=== PATIENT | female | born 1935 | race Caucasian/White ===

== ENCOUNTER 2017-01-19 14:12 | Inpatient (IN) ==
[2017-01-19] MEDS ORDERED: ACETAMINOPHEN 325 MG TABLET PO PRN ×2 (14:25→15:48)
[2017-01-19] MEDS: DEXTROSE 5% NACL 0.45% 1,000 ML IV SCH (16:30)
[2017-01-19 16:32] LABS: Basophils # 0.1 10*3/uL (0.0-0.2); Basophils % 0.6 % (0.0-0.8); Eosinophils # 0.1 10*3/uL (0.0-0.87); Eosinophils % 0.6 % (0.00-10.9); Hematocrit 37.4 VOL% (35.7-47.0); Immature Granulocytes % 0.2 %; Immature Granulocytes Absolute 0.02 #; Lymphocytes # 1.2 10*3/uL (1.4-4.0); Lymphocytes % 13.3 % (21.3-54.2); Mean Corpuscular HGB Conc 32.1 GM/DL (32-36); Mean Corpuscular Hemoglobin 28 PG (27-34); Mean Corpuscular Volume 86.2 FL (87-102); Mean Platelet Volume 9.9 FL (9.6-12.0); Monocytes # 0.6 10*3/uL (0.11-0.8); Monocytes % 6.3 % (1.7-12.7); Neutrophils # 7.3 10*3/uL (1.4-7.4); Platelet Count 511 T/CUMM (130-400); Red Blood Count 4.34 MC/CUMM (3.8-5.5); Red Cell Distribution Width 18.6 % (9.3-17.3); White Blood Count 9.3 T/CUMM (4-12)
--- NOTE | 2017-01-19 16:37 | XRay Report ---
History is chest pain Comparison 08/01/2016 Mediastinal contours unchanged with a small hiatal hernia present. No congestive failure or confluent infiltrates seen Multiple chronic right upper rib fractures present Extensive chronic deformity of the proximal left humerus noted Impression: No interval change PROCEDURE INTERPRETED AT [facility] DEPARTMENT OF RADIOLOGY Final Report Signed by: Dr. Amisha Camp
[2017-01-19 17:05] LABS: Albumin 3.8 G/DL (3.4-5.0); Bilirubin,Total 0.8 MG/DL (0.2-1.0); Calcium 9.2 MG/DL (8.5-10.1); Magnesium 2.3 MG/DL (1.8-2.4); Total Protein 7.2 G/DL (6.4-8.3)
[2017-01-19 17:06] LABS: Osmolality,Calculated 284.3 MOS/KG (273-304); Potassium 4.2 MMOL/L (3.5-5.1)
--- NOTE | 2017-01-19 17:39 | EKG Report ---
Stationary ECG Study [facility] Test Date: 01/19/2017 5:38:12 PM Pat Name: PANCHITO PETERS Department: Room: 236 Gender: F Office Manager Executive Assistant: KYARA : 1935 Requested by: Paras Dueñas Order Number: [id number] Reading MD: REX MENDOZA Intervals [place] Rate: 94 P: 58 CA: 165 QRS: -49 QRSD: 110 T: 12 QT: 362 QTc: 414 Interpretive Statements SINUS RHYTHM LEFT ANTERIOR FASCICULAR BLOCK VOLTAGE CRITERIA FOR LVH POSSIBLE ANTERIOR MYOCARDIAL INFARCTION, OF INDETERMINATE AGE Electronically Signed On 01-21-17 11:20:50 CDT by REX MENDOZA [email or web address]
[2017-01-19 19:33] LABS: Apearance,Urine Slightly Hazy (Clear); Bilirubin,Urine Negative (Negative); Blood, Urine Negative (Negative); Glucose,Urine (UA) Negative (Negative); Ketones,Urine Negative (Negative); Mucus,Urine Occasional /LPF (Occasional); Nitrite,Urine Negative (Negative); Protein,Urine Negative; RBC,Urine <1 /HPF (0-4); Squamous Epithelial Cell,Urine Occasional /HPF (0-10); Urine Color Yellow (Yellow); Urine Specific Gravity 1.009 (1.001-1.035); Urine Urobilinogen < 2.0 EU/DL (0.2-1.0); WBC,Urine <1 /HPF (0-6)
[2017-01-19] MEDS: ENOXAPARIN 40 MG/0.4 ML SYRINGE SUBCUT SCH (19:39)
[2017-01-19] MEDS: GABAPENTIN 300 MG CAPSULE PO SCH (20:54)
[2017-01-19] MEDS: DONEPEZIL 5 MG TABLET PO SCH (20:55)
[2017-01-19] MEDS: clonazePAM 0.5 MG TABLET PO SCH (20:55)
[2017-01-19] MEDS: DOCUSATE SODIUM 100 MG CAPSULE PO SCH (20:55)
[2017-01-19] MEDS ORDERED: ONDANSETRON 4 MG/2 ML VIAL IV PRN (21:00)
[2017-01-20 04:14] LABS: Risk Ratio 2.17; VLDL CHOLESTEROL 33.6 MG/DL
--- NOTE | 2017-01-20 07:26 | Family Practice History&Phys ---
Assessment and Plan (1) Recurrent falls while walking Status: Acute Assessment and plan: 01/20/2017: Physical therapy, occupational therapy and neurology have been consulted. MRI of the brain, cervical and lumbar spine have been ordered. D Current Visit: Yes (2) Lower extremity weakness Status: Acute Assessment and plan: 01/20/2017: MR studies have been ordered. Current Visit: Yes History of Present Illness Chief complaint: Recurring falls History of present illness: Ms. Ayoub is a 81 year old female Patient's 81-year-old white female presented my office on day of admission with history of recurring falls. Patient states this is due to increasing weakness in her lower extremities and pain in her left lower extremity. Patient's had multiple falls and she is having trouble performing her daily functions at assisted living due to her inability to get up and walk. She has had physical therapy at assisted living but she is making little to no headway. She is to the point that she cannot function in this environment any longer. She denies any new neck or back pain though she has chronic discomfort in both areas. She had no loss of consciousness with any of her falls but does have a mild headache which comes and goes. Patient admits to being quite depressed by her predicament and is confounded by her lack of independence. I told her we needed to admit her get studies of her cervical spine and lumbar spine and brain insurance she has not had any stroke or spinal problem leading to her present problems. I truly think she is going to need long-term care. Home Medications Medication Instructions Recorded Confirmed Type Aspirin [Ecotrin] 81 mg PO DAILY 02/14/15 01/19/17 History Estradiol Tab [Estrace Tab] 1 mg PO DAILY 02/14/15 01/19/17 History Levothyroxine Tab [Synthroid Tab] 25 mcg PO DAILY 02/14/15 01/19/17 History Pantoprazole Tab [Protonix Tab] 40 mg PO BID 02/14/15 01/19/17 History Polyethylene Glycol Powder 17 gm PO DAILY 02/14/15 01/19/17 History [Miralax] clonazePAM [Clonazepam] 0.5 mg PO BID 02/14/15 01/19/17 History HYDROcodone/ACETAMIN 10-325 [[place] 1 tablet PO TID 02/01/16 01/19/17 History 10-325] Multivitamin (Ocuvite) [Ocuvite] 1 tablet PO DAILY 02/01/16 01/19/17 History Acetaminophen Tab [Tylenol Tab] 650 mg PO Q6H PRN #0 tablet 08/02/16 01/19/17 Rx Losartan/Hctz 50-12.5 [Hyzaar 1 tablet PO DAILY 11/08/16 01/19/17 History 50-12.5] Gabapentin 300 mg PO BID 01/19/17 01/19/17 History Allergies Allergy/AdvReac Type Severity Reaction Status Date / Time codeine AdvReac Nausea Verified 02/13/15 13:25 Corticosteroids AdvReac Depression Verified 02/01/16 14:50 (Glucocorticoids) morphine AdvReac Nausea Verified 02/13/15 13:25 - Constitutional Constitutional: Present: fatigue, weakness. Absent: chills, fever(s) - EENT Eyes: Absent: blurry vision, loss of vision Ears: Absent: decreased hearing, ear pain Nose, mouth and throat: Absent: hoarseness, nasal congestion, sinus pressure, sore throat - Cardiovascular Cardiovascular: Absent: chest pain at rest, chest pain with activity, dyspnea, orthopnea, palpitations, PND - Respiratory Respiratory: Absent: cough, dyspnea, wheezing - Gastrointestinal Gastrointestinal: Absent: abdominal pain, diarrhea, dyspepsia, dysphagia, melena , nausea, vomiting - Genitourinary Genitourinary: Absent: difficulty urinating, urinary frequency, urinary hesitancy - Musculoskeletal Musculoskeletal: Present: arthralgias (Left knee), back pain - Neurological Neurological: Present: disequilibrium, dizziness, radicular pain. Absent: confusion, convulsions, focal weakness, numbness, paresthesias - Psychiatric Psychiatric: Present: anxiety, depression. Absent: confusion - Endocrine Endocrine: Present: fatigue. Absent: polydipsia, polyphagia - Hematologic/Lymphatic Hematologic/Lymphatic: Absent: easy bleeding, easy bruising Medical,Surgical,& Family Hx - Medical History Cardio: History of: Hypertension No history of: Aneurysm, Cardiac Dysrhythmia, Cerebrovascular Disease, Congenital Heart Disease, CHF, CAD, [place], Pacemaker, PVD, Valvular Heart Disease, Cardiovascular Problems Psychological: History of: Anxiety Disorders, Depression, Psychiatric/Substance Abuse Tx (vision therapist for depression and anxiety.) No history of: ADHD, Behavior Problems, Bipolar Disorder, Previous Suicide Attempt, Schizophrenia, Violent Behavior, Psychiatric Problems Neurology: History of: Dementia, Migraine, Vertigo No history of: Brain Aneurysm, Cerebral Hemorrhage, Cerebrovascular Accident , Cerebral Palsy, Multiple Sclerosis, Parkinson's Disease, Peripheral Neuropathy , Seizures, TIA, Neurologocal Cancer HEENT: History of: Eye Problem (macular degeneration), Dental Problems No history of: Ear Problem, Glaucoma, Oral Cancer, HEENT Problems Endocrine: History of: Thyroid Disorder (hypothyroidism), Endocrine Problems No history of: Adrenal Disease, Diabetes Mellitus (IDDM), Diabetes Mellitus ( NIDDM), Dyslipidemia, Endocrine Cancer Rheumatology: No history of;: Fibromyalgia, Gout, Myasthenia Gravis, Psoriasis, Rheumatoid Arthritis, Sjogrens, Systemic Lupus Erythematosus, Rheumatological Problems Respiratory: History of: Bronchitis, Pneumonia No history of: Asthma, COPD, Intubation, Obstructive Sleep Apnea, Pulmonary Embolism, Pulmonary Hypertension, Lung Cancer, Respiratory Problems Renal: No history of: Renal (Kidney) Cancer, Dialysis, Renal Failure, Renal Problems Genitourinary: History of: Bladder Problem, Recurring Urinary Tract Infections, Problems (vaginal mesh) No history of: Kidney Stones, Genitourinary Cancer Gastrointestinal: History of: Hemorrhoids, GI Problems (IBS, hiatel hernia) No history of: Bowel Obstruction, Clostridium Difficile, Crohn's Disease, Diverticulitis/ Diverticulosis, Esophageal Varices, Gastrointestinal Bleed, Hematochezia, Hepatitis, Liver Problems, Pancreatitis, Polyps, Ulcerative Colitis, Gastrointestinal Cancer Musculoskeletal: History of: Back/Neck Problems, Degenerative Disk Disease, Herniated Disk, Osteoporosis No history of: Amputation, Musculoskeletal Cancer, Musculoskeletal Problems Hematology: History of: Blood Transfusion Reaction No history of: Anemia, Bleeding Problems, Clotting Problems, Sickle Cell Disease, Hematologic Cancer, Blood Disorders Reproductive: History of: Abnormal Pap Smear, Breast Cancer (mastectomy x 2 total on left and right .. ca i left with reconstrution), Ovarian Cysts, Complication (miscarriage (1) and breech (1)) No history of: Endometriosis, Ectopic , Sexually Transmitted Disorders, Reproductive Cancer, Reproductive Problems Other: History of: Cancer No history of: Anesthesia Reactions, Anaphylaxis, Eczema, HIV, Malignant Hyperthermia, MRSA, Vancomycin-Resistant Enterococci, Skin Problems, Miscellaneous Medical Problems - Surgical History Cardiac Surgeries: Patient Denies: Femoral-Popliteal Bypass Graft, Cardiac Catheterization, Cardiac Surgery, Carotid Endarterectomy, Internal Defibrillator, Vascular Access Devices Thoracic Surgeries: Patient denies;: Kidney (Renal Surgery), Lithotripsy, Nephrectomy, Organ Transplant, Lobectomy Neurologic Surgeries: Patient denies: Brain Aneurysm, Cerebral Hemorrhage, Neurologic Surgery HEENT Surgeries: Surgical HX of: Eye Surgery (bilateral cataracts.), Tonsilectomy & Adenoidectomy Patient denies: Carotid Endarterectomy, Thyroid Surgery Abdominal Surgeries: Surgical HX of: Abdominal Surgery, Appendectomy, Cholecystectomy, Colonoscopy, EGD Patient denies: Gastric Bypass Surgery, Hernia Repair, Splenectomy Reproductive Surgeries: Surgical HX of;: Breast Surgery, Section, Cystoscopy, Genitourinary Surgery, Gynecologic Surgery, Hysterectomy Patient denies;: Dilation and Curettage, Tubal Ligation Orthopedic Surgeries: Surgical HX of;: Implanted Devices (bilateral breast implants), Total Hip Replacement (left hip) Patient denies;: Orthopedic Surgery, Spinal Surgery, Total Knee Replacement - Family History Family History: Reports;: Family Heart Disease, Family Hypertension Denies;: Family Anesthesia Reaction, Family Cancer, Family Diabetes, Family Psychiatric Problems, Family Stroke - Social History Smoking Status: Never smoker Frequency of Alcohol Use: None Type of Drug Use: None Exam - Constitutional Vitals: Period Temp Pulse Resp BP Sys/Schneider Pulse Ox Last 24 Hr 97.2 F-98.3 F 78-93 16-20 151-162/78-84 92-97 Exam: General: Objective patient is a well-developed white female in no acute distress. Patient is articulate and able to give good history. She has no evidence of cognitive impairment. She certainly has a depressed countenance HEENT: Pupils equal and reactive to light. Patent nares and airway Neck: No meningismus, adenopathy, thyromegaly. There are no auscultated carotid bruits. Cardiovascular: Regular rhythm. No murmurs or gallops Chest: Clear to auscultation without rales rhonchi wheezes. Abdomen: Soft nontender to palpation No masses, rebound, guarding or tenderness. Neuro: Cranial nerves intact and DTRs and strength symmetric in all extremities. Dermatologic: No evidence of abnormal lesions or masses. Musculoskeletal: There is no joint swelling the patient does have left knee tenderness. She does have pain with full extension of the left knee. Extremities: There is no calf swelling or tenderness. Psychiatric: Patient is clearly depressed with flattened affect. She is worried about the path she is presently following and quite dissatisfied with her frailties. There is no difficulty with her rationale and she is fully aware of the circumstances. Results - Labs CBC & BMP: 01/19/17 15:59 01/19/17 15:59 Lab Results: I have reviewed the past 24 hour labs - EKG EKG results: sinus rhythm (Heart rate 94 bpm), normal axis, normal QRS, normal ST/T - Diagnostic Findings Procedure: Chest x-ray: report reviewed by me (Normal)
--- NOTE | 2017-01-20 09:15 | Neurology Consult Note ---
History of Present Illness History of present illness: Patient's 81-year-old right-hand white lady admitted to the hospital with recurrent falls. Patient states this is due to increasing weakness in her lower extremities and pain in her left lower extremity primarily in the left knee. Patient's had multiple falls and she is having trouble performing her daily functions at assisted living due to her inability to get up and walk. She has had physical therapy at assisted living but she is making little to no improvement. She is to the point that she cannot function in this environment any longer. She denies any new neck or back pain though she has chronic discomfort in both areas. She had no loss of consciousness with any of her falls but does have a mild headache which comes and goes. Patient admits to being quite depressed. She denies any speech difficulties, swallowing problems , vision difficulties. Her primary problem is that she cannot walk because of left knee pain. Home Medications Medication Instructions Recorded Confirmed Type Aspirin [Ecotrin] 81 mg PO DAILY 02/14/15 01/19/17 History Estradiol Tab [Estrace Tab] 1 mg PO DAILY 02/14/15 01/19/17 History Levothyroxine Tab [Synthroid Tab] 25 mcg PO DAILY 02/14/15 01/19/17 History Pantoprazole Tab [Protonix Tab] 40 mg PO BID 02/14/15 01/19/17 History Polyethylene Glycol Powder 17 gm PO DAILY 02/14/15 01/19/17 History [Miralax] clonazePAM [Clonazepam] 0.5 mg PO BID 02/14/15 01/19/17 History HYDROcodone/ACETAMIN 10-325 [[place] 1 tablet PO TID 02/01/16 01/19/17 History 10-325] Multivitamin (Ocuvite) [Ocuvite] 1 tablet PO DAILY 02/01/16 01/19/17 History Acetaminophen Tab [Tylenol Tab] 650 mg PO Q6H PRN #0 tablet 08/02/16 01/19/17 Rx Losartan/Hctz 50-12.5 [Hyzaar 1 tablet PO DAILY 11/08/16 01/19/17 History 50-12.5] Gabapentin 300 mg PO BID 01/19/17 01/19/17 History Allergies Allergy/AdvReac Type Severity Reaction Status Date / Time codeine AdvReac Nausea Verified 02/13/15 13:25 Corticosteroids AdvReac Depression Verified 02/01/16 14:50 (Glucocorticoids) morphine AdvReac Nausea Verified 02/13/15 13:25 12 point system: reviewed and no additional remarkable complaints except as stated Medical,Surgical,& Family Hx - Medical History Cardio: History of: Hypertension No history of: Aneurysm, Cardiac Dysrhythmia, Cerebrovascular Disease, Congenital Heart Disease, CHF, CAD, [place], Pacemaker, PVD, Valvular Heart Disease, Cardiovascular Problems Psychological: History of: Anxiety Disorders, Depression, Psychiatric/Substance Abuse Tx (fur cutter for depression and anxiety.) No history of: ADHD, Behavior Problems, Bipolar Disorder, Previous Suicide Attempt, Schizophrenia, Violent Behavior, Psychiatric Problems Neurology: History of: Dementia, Migraine, Vertigo No history of: Brain Aneurysm, Cerebral Hemorrhage, Cerebrovascular Accident , Cerebral Palsy, Multiple Sclerosis, Parkinson's Disease, Peripheral Neuropathy , Seizures, TIA, Neurologocal Cancer HEENT: History of: Eye Problem (macular degeneration), Dental Problems No history of: Ear Problem, Glaucoma, Oral Cancer, HEENT Problems Endocrine: History of: Thyroid Disorder (hypothyroidism), Endocrine Problems No history of: Adrenal Disease, Diabetes Mellitus (IDDM), Diabetes Mellitus ( NIDDM), Dyslipidemia, Endocrine Cancer Rheumatology: No history of;: Fibromyalgia, Gout, Myasthenia Gravis, Psoriasis, Rheumatoid Arthritis, Sjogrens, Systemic Lupus Erythematosus, Rheumatological Problems Respiratory: History of: Bronchitis, Pneumonia No history of: Asthma, COPD, Intubation, Obstructive Sleep Apnea, Pulmonary Embolism, Pulmonary Hypertension, Lung Cancer, Respiratory Problems Renal: No history of: Renal (Kidney) Cancer, Dialysis, Renal Failure, Renal Problems Genitourinary: History of: Bladder Problem, Recurring Urinary Tract Infections, Problems (vaginal mesh) No history of: Kidney Stones, Genitourinary Cancer Gastrointestinal: History of: Hemorrhoids, GI Problems (IBS, hiatel hernia) No history of: Bowel Obstruction, Clostridium Difficile, Crohn's Disease, Diverticulitis/ Diverticulosis, Esophageal Varices, Gastrointestinal Bleed, Hematochezia, Hepatitis, Liver Problems, Pancreatitis, Polyps, Ulcerative Colitis, Gastrointestinal Cancer Musculoskeletal: History of: Back/Neck Problems, Degenerative Disk Disease, Herniated Disk, Osteoporosis No history of: Amputation, Musculoskeletal Cancer, Musculoskeletal Problems Hematology: History of: Blood Transfusion Reaction No history of: Anemia, Bleeding Problems, Clotting Problems, Sickle Cell Disease, Hematologic Cancer, Blood Disorders Reproductive: History of: Abnormal Pap Smear, Breast Cancer (mastectomy x 2 total on left and right .. ca i left with reconstrution), Ovarian Cysts, Complication (miscarriage (1) and breech (1)) No history of: Endometriosis, Ectopic , Sexually Transmitted Disorders, Reproductive Cancer, Reproductive Problems Other: History of: Cancer No history of: Anesthesia Reactions, Anaphylaxis, Eczema, HIV, Malignant Hyperthermia, MRSA, Vancomycin-Resistant Enterococci, Skin Problems, Miscellaneous Medical Problems - Surgical History Cardiac Surgeries: Patient Denies: Femoral-Popliteal Bypass Graft, Cardiac Catheterization, Cardiac Surgery, Carotid Endarterectomy, Internal Defibrillator, Vascular Access Devices Thoracic Surgeries: Patient denies;: Kidney (Renal Surgery), Lithotripsy, Nephrectomy, Organ Transplant, Lobectomy Neurologic Surgeries: Patient denies: Brain Aneurysm, Cerebral Hemorrhage, Neurologic Surgery HEENT Surgeries: Surgical HX of: Eye Surgery (bilateral cataracts.), Tonsilectomy & Adenoidectomy Patient denies: Carotid Endarterectomy, Thyroid Surgery Abdominal Surgeries: Surgical HX of: Abdominal Surgery, Appendectomy, Cholecystectomy, Colonoscopy, EGD Patient denies: Gastric Bypass Surgery, Hernia Repair, Splenectomy Reproductive Surgeries: Surgical HX of;: Breast Surgery, Section, Cystoscopy, Genitourinary Surgery, Gynecologic Surgery, Hysterectomy Patient denies;: Dilation and Curettage, Tubal Ligation Orthopedic Surgeries: Surgical HX of;: Implanted Devices (bilateral breast implants), Total Hip Replacement (left hip) Patient denies;: Orthopedic Surgery, Spinal Surgery, Total Knee Replacement - Family History Family History: Reports;: Family Heart Disease, Family Hypertension Denies;: Family Anesthesia Reaction, Family Cancer, Family Diabetes, Family Psychiatric Problems, Family Stroke - Social History Smoking Status: Never smoker Frequency of Alcohol Use: None Type of Drug Use: None Exam - Constitutional Vitals: Period Temp Pulse Resp BP Sys/Schneider Pulse Ox Last 24 Hr 97.2 F-98.3 F 78-93 16-20 151-162/78-84 92-97 Exam: GENERAL: Patient is in no acute distress. NECK: Neck is supple. There is no JVD. No carotid bruits present. No thyroid masses. CVS: First and second heart sounds are normal. There is no S3 present. Regular rate and rhythm. RESPIRATORY: Lungs are clear to auscultation without any rales or rhonchi. ABDOMEN: Soft and non-tender. Bowel sounds are present. There is no hepatosplenomegaly. EXT: There is no palpable edema. Peripheral pulses are present. Skin: No rashes Central Nervous system: General: Alert, awake and Oriented x 3 Speech: Fluent Comprehension: Intact and normal Facial expressions: Normal Cranial Nerves: CN1/Olfactory: Normal CN II/ Optic: Normal, Visual Paiz unreliable CN III, and : PARVEZ & EOMI CN V: Normal & intact CN VII: face is symmetric CNVIII: Normal CN XI/X/XI/XII: Intact and Normal Motor: Bulk and Tone is normal. Strength in the right 5/5 Strength in the left 2-3/5 and this is because of significant tenderness in the left knee Sensory: Grossly intact for all the modalities of PP, LT and temp sense Reflexes: 1+ and symmetrical Cerebellar function: Normal finger to nose testing. Toes: Equivocal Gait: Not tested Results - Labs CBC & BMP: 01/19/17 15:59 01/19/17 15:59 Assessment and Plan (1) Gait disorder Status: Acute Assessment and plan: Gait disorder and frequent falls is likely due to the severe osteoarthritis of the left knee. I do not see a clear evidence of a stroke. MRI has been ordered. Will review it. Agree with long-term care Consider orthopedic surgery consultation for the left knee. Continue aspirin a day Consult PT and OT Current Visit: No
[2017-01-20] MEDS: hydroCHLOROthiazide 12.5 MG CAPSULE PO SCH (11:07)
[2017-01-20] MEDS: MULTIVITAMIN (OCUVITE) TABLET PO SCH (11:08)
[2017-01-20] MEDS: ESTRADIOL 1 MG TABLET PO SCH (11:08)
[2017-01-20] MEDS: ASPIRIN EC 81 MG TABLET PO SCH (11:08)
[2017-01-20] MEDS: GABAPENTIN 300 MG CAPSULE PO SCH ×2 (11:09→21:28)
[2017-01-20] MEDS: clonazePAM 0.5 MG TABLET PO SCH ×2 (11:10→21:28)
[2017-01-20] MEDS: PANTOPRAZOLE 40 MG TABLET PO SCH (11:10)
[2017-01-20] MEDS: DULoxetine 30 MG CAPSULE PO SCH (11:11)
[2017-01-20] MEDS: DOCUSATE SODIUM 100 MG CAPSULE PO SCH ×2 (11:11→21:27)
[2017-01-20] MEDS: LEVOTHYROXINE 25 MCG TABLET PO SCH (11:16)
[2017-01-20] MEDS: POLYETHYLENE GLYCOL POWDER 17 GM PACK PO SCH (11:16)
--- NOTE | 2017-01-20 12:14 | Magnetic Resonance Report ---
MR head/brain wo con Indication: Lower extremity weakness Comparison: MRI brain dated August 02, 2016 Technique: Multiplanar magnetic resonance imaging was performed of the brain without the use of intravenous contrast. Findings: Redemonstration of moderate to marked periventricular and subcortical T2 hyperintensity which is nonspecific but appears mildly progressed from prior examination. Considerations include chronic microvascular ischemic change, vasculitis, and demyelinating process. Global volume loss again present. Mild to moderate prominence of the bilateral lateral and third ventricles appears unchanged and is likely on an ex vacuo dilatation basis. However, clinical correlation to exclude normal pressure hydrocephalus is recommended. The midline structures are nondisplaced. The hopkins-white matter differentiation is maintained. Hyperintensity noted within the ventral gonzalo on diffusion-weighted sequence is most likely artifactual. There is no definitive evidence of acute intracranial hemorrhage or ischemia. The included orbits and their contents appear within normal limits. T2 major vascular flow voids are maintained. IMPRESSION: No acute intracranial abnormality demonstrated. Redemonstration of moderate to marked periventricular and subcortical T2 hyperintensity which is nonspecific but appears mildly progressed from prior examination. Considerations include chronic microvascular ischemic change, vasculitis, and demyelinating process. Global volume loss again present. Mild to moderate prominence of the bilateral lateral and third ventricles appears unchanged and is likely on an ex vacuo dilatation basis. However, clinical correlation to exclude normal pressure hydrocephalus is recommended. PROCEDURE INTERPRETED AT [facility] DEPARTMENT OF RADIOLOGY Final Report Signed by: Dr Ramiro Justice
--- NOTE | 2017-01-20 13:02 | Magnetic Resonance Report ---
MR cervical spine wo con Indication: Lower extremity weakness Comparison: MRI cervical spine dated January 20, 2017 Technique: Multiplanar MRI imaging of the cervical spine was obtained without the use of intravenous contrast. Findings: Vertebral body heights are maintained. 2 mm retrolisthesis of C3 upon C4, C4 upon C5, and C5 upon C6. Straightening of normal cervical lordosis which may be positional or secondary to muscle spasm. Disc levels: C2/C3: No significant disc bulge, neuroforaminal narrowing or central spinal canal stenosis. C3/C4: Mild loss of disc space height. Posterior disc osteophyte complex noted at this level with moderate spinal canal narrowing. There is mild bilateral neuroforaminal narrowing as a result of posterior facet and uncovertebral joint hypertrophy. C4/C5: Severe loss of disc space height. Posterior disc osteophyte complex noted at this level with moderate to severe spinal canal narrowing and mild cord flattening. There is moderate to severe bilateral neuroforaminal narrowing, greater on the right, as a result of uncovertebral joint and posterior facet hypertrophy. C5/C6: Severe loss of disc space height. Posterior disc osteophyte complex noted at this level with moderate spinal canal narrowing and mild cord flattening. There is severe bilateral neuroforaminal narrowing noted at this level as a result of posterior facet and uncovertebral joint hypertrophy, greater on the left. C6/C7: Moderate to severe loss of disc space height. Mild posterior disc osteophyte complex with mild to moderate spinal canal narrowing. Moderate to severe bilateral neuroforaminal narrowing as a result of uncovertebral joint and posterior facet hypertrophy. C7/T1: Moderate to severe loss of disc space height. Spinal canal patent. Bilateral neural foramina are patent. IMPRESSION: Multilevel degenerative change and malalignment of the cervical spine with significant spinal canal and neuroforaminal narrowing, as detailed above. Findings appear similar to study dated February 02, 2016. PROCEDURE INTERPRETED AT [facility] DEPARTMENT OF RADIOLOGY Final Report Signed by: Dr Ramiro Justice
--- NOTE | 2017-01-20 13:10 | Magnetic Resonance Report ---
MR lumbar spine wo con Indication: Lower extremity weakness Comparison: MRI lumbar spine dated November 08, 2016 Technique: Multiplanar MRI imaging of the lumbar spine was performed without the use of intravenous contrast. Findings: 2 mm retrolisthesis of L2 upon L3. Vertebral body heights are maintained. Intervertebral disc space levels: L1-L2: Mild diffuse disc bulge as well as posterior facet and ligamentum flavum hypertrophy with minimal spinal canal narrowing. There is no significant neuroforaminal narrowing. L2-L3: Moderate to severe loss of disc space height. Mild diffuse disc bulge with posterior facet and ligamentum flavum hypertrophy results in moderate spinal canal narrowing. There is moderate bilateral neuroforaminal narrowing, greater on the right. L3-L4: Mild loss of disc space height. Mild diffuse disc bulge with posterior facet and ligamentum flavum hypertrophy result in mild spinal canal narrowing. There is moderate bilateral neuroforaminal narrowing. L4-L5: Mild loss of disc space height with posterior facet and ligamentum flavum hypertrophy results in moderate spinal canal narrowing. There is moderate bilateral neuroforaminal narrowing. L5-S1: Disc desiccation with mild diffuse disc bulge as well as posterior facet hypertrophy results in mild spinal canal narrowing. There is moderate to severe bilateral neuroforaminal narrowing. 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 PROCEDURE INTERPRETED AT [facility] DEPARTMENT OF RADIOLOGY Final Report Signed by: Dr Ramiro Justice
[2017-01-20] MEDS: Mirabegron [Myrbetriq] 25 MG PO SCH (17:02)
[2017-01-20] MEDS: DONEPEZIL 5 MG TABLET PO SCH (21:28)
[2017-01-20] MEDS: ENOXAPARIN 40 MG/0.4 ML SYRINGE SUBCUT SCH (21:28)
[2017-01-21] MEDS: DEXTROSE 5% NACL 0.45% 1,000 ML IV SCH ×2 (08:25→17:09)
[2017-01-21] MEDS: clonazePAM 0.5 MG TABLET PO SCH ×2 (08:26→22:34)
[2017-01-21] MEDS: ASPIRIN EC 81 MG TABLET PO SCH (08:26)
[2017-01-21] MEDS: PANTOPRAZOLE 40 MG TABLET PO SCH (08:27)
[2017-01-21] MEDS: hydroCHLOROthiazide 12.5 MG CAPSULE PO SCH (08:27)
[2017-01-21] MEDS: ESTRADIOL 1 MG TABLET PO SCH (08:27)
[2017-01-21] MEDS: DULoxetine 30 MG CAPSULE PO SCH (08:27)
[2017-01-21] MEDS: MULTIVITAMIN (OCUVITE) TABLET PO SCH (08:27)
[2017-01-21] MEDS: GABAPENTIN 300 MG CAPSULE PO SCH ×2 (08:28→22:34)
[2017-01-21] MEDS: POLYETHYLENE GLYCOL POWDER 17 GM PACK PO SCH (08:28)
[2017-01-21] MEDS: DOCUSATE SODIUM 100 MG CAPSULE PO SCH ×2 (08:28→22:34)
[2017-01-21] MEDS: LEVOTHYROXINE 25 MCG TABLET PO SCH (08:28)
[2017-01-21] MEDS: Mirabegron [Myrbetriq] 25 MG PO SCH (08:32)
--- NOTE | 2017-01-21 11:22 | Internal Med Progress Note ---
Assessment and Plan (1) Lower extremity weakness Status: Acute Assessment and plan: 81-year-old female admitted to acute care * Lower extremity weakness. Workup in progress * Multiple falls. Probably secondary to severe osteoarthritis of her knee. * Hypertension. Blood pressure is stable. * Continues to current treatment. Current Visit: Yes (2) Recurrent falls while walking Status: Acute Current Visit: Yes (3) depression Status: Chronic Current Visit: No (4) generalized anxiety Status: Chronic Current Visit: No (5) hypertension Status: Chronic Current Visit: No Internal Medicine - PN: Subj Interval history: 81-year-old female with history of hypothyroidism, hypertension, neuropathy who was admitted with multiple falls. She denies any chest pain or shortness of breath. She denies any nausea vomiting or diarrhea. She is complaining of pain in her shoulder and knee Exam (Progress Note) - Constitutional Vitals: Period Temp Pulse Resp BP Sys/Schneider Pulse Ox Last 24 Hr 97.1 F-97.8 F 77-98 20-20 158-165/80-94 92-98 Exam: Examination: GENERAL: NAD. HEENT: PERRLA. EOMI. NECK: Neck is supple. CVS: Regular rate and rhythm. S1 and S2 are normal. RESPIRATORY: Lungs are clear. No rales or rhonchi. ABDOMEN: Soft and nontender. EXT: No edema. PERSONAL CLOTHING LAUNDRY AIDE: Patient is awake, alert and oriented to time place and person. SKIN: Warm and dry. MSK: No obvious deformity. Results - Labs CBC & BMP: 01/19/17 15:59 01/19/17 15:59
[2017-01-21] MEDS: DONEPEZIL 5 MG TABLET PO SCH (22:34)
[2017-01-21] MEDS: ENOXAPARIN 40 MG/0.4 ML SYRINGE SUBCUT SCH (22:35)
[2017-01-22] MEDS: DEXTROSE 5% NACL 0.45% 1,000 ML IV SCH (04:30)
[2017-01-22] MEDS: DULoxetine 30 MG CAPSULE PO SCH (09:29)
[2017-01-22] MEDS: POLYETHYLENE GLYCOL POWDER 17 GM PACK PO SCH (09:29)
[2017-01-22] MEDS: MULTIVITAMIN (OCUVITE) TABLET PO SCH (09:29)
[2017-01-22] MEDS: hydroCHLOROthiazide 12.5 MG CAPSULE PO SCH (09:29)
[2017-01-22] MEDS: ASPIRIN EC 81 MG TABLET PO SCH (09:30)
[2017-01-22] MEDS: ESTRADIOL 1 MG TABLET PO SCH (09:30)
[2017-01-22] MEDS: clonazePAM 0.5 MG TABLET PO SCH ×2 (09:30→22:09)
[2017-01-22] MEDS: DOCUSATE SODIUM 100 MG CAPSULE PO SCH ×2 (09:30→22:09)
[2017-01-22] MEDS: PANTOPRAZOLE 40 MG TABLET PO SCH (09:30)
[2017-01-22] MEDS: LEVOTHYROXINE 25 MCG TABLET PO SCH (09:30)
[2017-01-22] MEDS: GABAPENTIN 300 MG CAPSULE PO SCH ×2 (09:30→22:09)
[2017-01-22] MEDS: Mirabegron [Myrbetriq] 25 MG PO SCH (09:30)
--- NOTE | 2017-01-22 10:18 | Internal Med Progress Note ---
Assessment and Plan (1) Lower extremity weakness Status: Acute Assessment and plan: 81-year-old female admitted to acute care * Lower extremity weakness. Patient has had MRI of brain and cervical spine and lumbar spine. Results noted. Doubt if she has NPH but it is a possibility * Multiple falls. Probably secondary to severe osteoarthritis of her knee. * Hypertension. Blood pressure is stable. * Continues to current treatment. Current Visit: Yes (2) Recurrent falls while walking Status: Acute Current Visit: Yes (3) depression Status: Chronic Current Visit: No (4) generalized anxiety Status: Chronic Current Visit: No (5) hypertension Status: Chronic Current Visit: No Internal Medicine - PN: Subj Interval history: 81-year-old female with history of hypothyroidism, hypertension, neuropathy who was admitted with multiple falls. She is feeling about the same. No chest pain or shortness of breath. Exam (Progress Note) - Constitutional Vitals: Period Temp Pulse Resp BP Sys/Schneider Pulse Ox Last 24 Hr 97.4 F-97.8 F 77-97 14-22 114-174/77-91 93-97 Exam: Examination: GENERAL: NAD. NECK: Neck is supple. CVS: Regular rate and rhythm. RESPIRATORY: Lungs are clear. ABDOMEN: Soft and nontender. EXT: No edema. BILINGUAL MEDICAL ASSISTANT: Patient is awake, alert and oriented to time place and person. SKIN: Warm and dry. MSK: No obvious deformity. Results - Labs CBC & BMP: 01/19/17 15:59 01/19/17 15:59
[2017-01-22] MEDS: DONEPEZIL 5 MG TABLET PO SCH (22:09)
[2017-01-22] MEDS: ENOXAPARIN 40 MG/0.4 ML SYRINGE SUBCUT SCH (22:10)
--- NOTE | 2017-01-23 07:27 | Family Practice Progress Note ---
Family Practice - PN: Subj Interval history: Patient states she is having urinary frequency and still very weak. I talked her about swing bed placement more intensive physical therapy and she was agreeable to trying this and requested [facility]. She has a E. coli UTI seen on her urine culture. I have started her on Rocephin today. She does not have any fever or chills. I have consulted physical therapy to start ambulation. Exam (Progress Note) - Constitutional Vitals: Period Temp Pulse Resp BP Sys/Schneider Pulse Ox Last 24 Hr 97.4 F-98.1 F 83-107 16-20 136-164/72-103 93-96 Exam: Objectively well-developed white female no acute distress. She is able to give good history. She still appears depressed. She did not bring her knee brace with her from home. I told her it would be a good idea for her to obtain one. I will ask orthopedist to see her. Cardiovascular: Heart rates regular without murmurs or gallops. Respiratory: Lungs clear to auscultation bilaterally. Abdomen: Abdomen soft and nontender to palpation. Results - Labs CBC & BMP: 01/19/17 15:59 01/19/17 15:59 Lab Results: I have reviewed the past 24 hour labs Assessment and Plan (1) Recurrent falls while walking Status: Acute Assessment and plan: 01/20/2017: Physical therapy, occupational therapy and neurology have been consulted. MRI of the brain, cervical and lumbar spine have been ordered. D 01/23/2017: Physical therapy has been consulted. I am going to ask her throat is here to concerning her persistent left knee pain. X-rays left knee will be ordered. Current Visit: Yes (2) Lower extremity weakness Status: Acute Assessment and plan: 01/20/2017: MR studies have been ordered. 01/23/2017: MR studies provided no insight into the cause of her weakness. Some of this may be related to her fear of falling. Current Visit: Yes (3) UTI (urinary tract infection) Status: Acute Assessment and plan: 01/23/2017: IV Rocephin has been ordered. Current Visit: Yes
[2017-01-23] MEDS: DEXTROSE 5% NACL 0.45% 1,000 ML IV SCH ×2 (07:41→21:51)
[2017-01-23] MEDS: cefTRIAXone 1,000 MG in SODIUM CHLORIDE 0.9% 100 ML IV SCH (08:19)
[2017-01-23] MEDS: POLYETHYLENE GLYCOL POWDER 17 GM PACK PO SCH (08:20)
[2017-01-23] MEDS: DULoxetine 30 MG CAPSULE PO SCH (08:21)
[2017-01-23] MEDS: ASPIRIN EC 81 MG TABLET PO SCH (08:21)
[2017-01-23] MEDS: MULTIVITAMIN (OCUVITE) TABLET PO SCH (08:21)
[2017-01-23] MEDS: hydroCHLOROthiazide 12.5 MG CAPSULE PO SCH (08:21)
[2017-01-23] MEDS: LEVOTHYROXINE 25 MCG TABLET PO SCH (08:21)
[2017-01-23] MEDS: GABAPENTIN 300 MG CAPSULE PO SCH ×2 (08:21→22:36)
--- NOTE | 2017-01-23 08:21 | XRay Report ---
Referring Physician: Paras Naylor Exam: XR knee 3V LT Date: January 23, 2017 at 7:37 AM Reason: Persistent left knee pain Comparison: Left femur x-rays August 20, 2013 Findings: There is mild tricompartmental marginal spurring. There is also moderate joint space narrowing at the medial compartment and mild joint space narrowing at the lateral compartment. No acute fracture, dislocation or osseous destructive process is identified. However, a suprapatellar joint effusion is suspected. Impression: Mild to moderate degenerative change at the left knee. No acute osseous process is identified. PROCEDURE INTERPRETED AT [facility] DEPARTMENT OF RADIOLOGY Final Report Signed by: Dr. Tere Goodson
[2017-01-23] MEDS: ESTRADIOL 1 MG TABLET PO SCH (08:22)
[2017-01-23] MEDS: PANTOPRAZOLE 40 MG TABLET PO SCH (08:22)
[2017-01-23] MEDS: clonazePAM 0.5 MG TABLET PO SCH ×2 (08:22→22:37)
[2017-01-23] MEDS: DOCUSATE SODIUM 100 MG CAPSULE PO SCH ×2 (08:22→22:37)
[2017-01-23] MEDS: Mirabegron [Myrbetriq] 25 MG PO SCH (08:28)
--- NOTE | 2017-01-23 10:53 | Case Mgmt Physician Query Form ---
TB Signs and Symptoms Screening ([place]) INSTRUCTIONS: To be completed annually on residents/staff with a significant Tuberculin Skin Test (TST) upon admission/hire or a prior significant TST. To be completed on all staff at hire. Please respond to each listed symptom with an (X) in either the "YES" or "NO" box. Do you currently have any of the following symptoms: YES NO ( ) (x ) A cough If yes, is it: ( ) Productive ( ) Non- productive ( ) (x ) Hemoptysis (spitting up blood) ( ) (x ) Chest pains ( ) (x ) Weight Loss ( ) (x ) Fever ( ) (x ) Night Sweats (x ) ( ) Weakness (x ) ( ) Loss of Appetite ( ) (x ) Difficulty Breathing If you answered YES" to any of the above questions, how long have symptoms been present? Comments: SHANNON
[2017-01-23] MEDS ORDERED: TUBERCULIN SKIN TEST 0.1 ML SYRINGE INTRADERM ONE (13:00)
--- NOTE | 2017-01-23 16:06 | Neurology Progress Note ---
Neurology - PN : Subjective Interval history: Patient seems to be doing about the same. No new problems reported. MRI of the brain cervical and lumbar spine results noted. It is pretty much unchanged from the previous exams. It shows multilevel DDD. Patient is set to go to [facility] swing bed. Exam (Progress Note) - Constitutional Vitals: Period Temp Pulse Resp BP Sys/Schneider Pulse Ox Last 24 Hr 97.6 F-98.1 F 85-107 16-20 136-161/72-91 93-95 Exam: GENERAL: Patient is in no acute distress. NECK: Neck is supple. There is no JVD. No carotid bruits present. No thyroid masses. CVS: First and second heart sounds are normal. There is no S3 present. Regular rate and rhythm. RESPIRATORY: Lungs are clear to auscultation without any rales or rhonchi. ABDOMEN: Soft and non-tender. Bowel sounds are present. There is no hepatosplenomegaly. EXT: There is no palpable edema. Peripheral pulses are present. Skin: No rashes Central Nervous system: General: Alert, awake and Oriented x 3 Speech: Fluent Comprehension: Intact and normal Facial expressions: Normal Cranial Nerves: CN1/Olfactory: Normal CN II/ Optic: Normal, Visual Paiz unreliable CN III, and : PARVEZ & EOMI CN V: Normal & intact CN VII: face is symmetric CNVIII: Normal CN XI/X/XI/XII: Intact and Normal Motor: Bulk and Tone is normal. Strength in the right 5/5 Strength in the left 2-3/5 and this is because of significant tenderness in the left knee Sensory: Grossly intact for all the modalities of PP, LT and temp sense Reflexes: 1+ and symmetrical Cerebellar function: Normal finger to nose testing. Toes: Equivocal Gait: Attempting to walk some Results - Labs CBC & BMP: 01/19/17 15:59 01/19/17 15:59 Assessment and Plan (1) Gait disorder Status: Acute Assessment and plan: Gait disorder and frequent falls is likely due to the severe osteoarthritis of the left knee. For placement to [facility] Sign off please call as needed Current Visit: No
--- NOTE | 2017-01-23 18:06 | Orthopedic Consult Note ---
History of Present Illness Chief complaint: Left knee pain History of present illness: Ms. Ayoub is a 81 year old female has been having difficulty walking recently due to left knee pain and leg weakness. Prior to this, she was walking with a walker. She notes no new injury. She says the pain is worse early in the day, it improves later in the day as she gets around a little more however he does remain painful. She recently had an injection by Dr. Naylor which gave her minimal relief. She has had previous hemiarthroplasty of the left hip. Home Medications Medication Instructions Recorded Confirmed Type Aspirin [Ecotrin] 81 mg PO DAILY 02/14/15 01/19/17 History Estradiol Tab [Estrace Tab] 1 mg PO DAILY 02/14/15 01/19/17 History Levothyroxine Tab [Synthroid Tab] 25 mcg PO DAILY 02/14/15 01/19/17 History Pantoprazole Tab [Protonix Tab] 40 mg PO BID 02/14/15 01/19/17 History Polyethylene Glycol Powder 17 gm PO DAILY 02/14/15 01/19/17 History [Miralax] clonazePAM [Clonazepam] 0.5 mg PO BID 02/14/15 01/19/17 History HYDROcodone/ACETAMIN 10-325 [Collins 1 tablet PO TID 02/01/16 01/19/17 History 10-325] Multivitamin (Ocuvite) [Ocuvite] 1 tablet PO DAILY 02/01/16 01/19/17 History Acetaminophen Tab [Tylenol Tab] 650 mg PO Q6H PRN #0 tablet 08/02/16 01/19/17 Rx Losartan/Hctz 50-12.5 [Hyzaar 1 tablet PO DAILY 11/08/16 01/19/17 History 50-12.5] Gabapentin 300 mg PO BID 01/19/17 01/19/17 History Allergies Allergy/AdvReac Type Severity Reaction Status Date / Time codeine AdvReac Nausea Verified 02/13/15 13:25 Corticosteroids AdvReac Depression Verified 02/01/16 14:50 (Glucocorticoids) morphine AdvReac Nausea Verified 02/13/15 13:25 12 point system: reviewed and no additional remarkable complaints except as stated Medical,Surgical,& Family Hx - Medical History Cardio: History of: Hypertension No history of: Aneurysm, Cardiac Dysrhythmia, Cerebrovascular Disease, Congenital Heart Disease, CHF, CAD, GA, Pacemaker, PVD, Valvular Heart Disease, Cardiovascular Problems Psychological: History of: Anxiety Disorders, Depression, Psychiatric/Substance Abuse Tx (casting carrier for depression and anxiety.) No history of: ADHD, Behavior Problems, Bipolar Disorder, Previous Suicide Attempt, Schizophrenia, Violent Behavior, Psychiatric Problems Neurology: History of: Dementia, Migraine, Vertigo No history of: Brain Aneurysm, Cerebral Hemorrhage, Cerebrovascular Accident , Cerebral Palsy, Multiple Sclerosis, Parkinson's Disease, Peripheral Neuropathy , Seizures, TIA, Neurologocal Cancer HEENT: History of: Eye Problem (macular degeneration), Dental Problems No history of: Ear Problem, Glaucoma, Oral Cancer, HEENT Problems Endocrine: History of: Thyroid Disorder (hypothyroidism), Endocrine Problems No history of: Adrenal Disease, Diabetes Mellitus (IDDM), Diabetes Mellitus ( NIDDM), Dyslipidemia, Endocrine Cancer Rheumatology: No history of;: Fibromyalgia, Gout, Myasthenia Gravis, Psoriasis, Rheumatoid Arthritis, Sjogrens, Systemic Lupus Erythematosus, Rheumatological Problems Respiratory: History of: Bronchitis, Pneumonia No history of: Asthma, COPD, Intubation, Obstructive Sleep Apnea, Pulmonary Embolism, Pulmonary Hypertension, Lung Cancer, Respiratory Problems Renal: No history of: Renal (Kidney) Cancer, Dialysis, Renal Failure, Renal Problems Genitourinary: History of: Bladder Problem, Recurring Urinary Tract Infections, Problems (vaginal mesh) No history of: Kidney Stones, Genitourinary Cancer Gastrointestinal: History of: Hemorrhoids, GI Problems (IBS, hiatel hernia) No history of: Bowel Obstruction, Clostridium Difficile, Crohn's Disease, Diverticulitis/ Diverticulosis, Esophageal Varices, Gastrointestinal Bleed, Hematochezia, Hepatitis, Liver Problems, Pancreatitis, Polyps, Ulcerative Colitis, Gastrointestinal Cancer Musculoskeletal: History of: Back/Neck Problems, Degenerative Disk Disease, Herniated Disk, Osteoporosis No history of: Amputation, Musculoskeletal Cancer, Musculoskeletal Problems Hematology: History of: Blood Transfusion Reaction No history of: Anemia, Bleeding Problems, Clotting Problems, Sickle Cell Disease, Hematologic Cancer, Blood Disorders Reproductive: History of: Abnormal Pap Smear, Breast Cancer (mastectomy x 2 total on left and right .. ca i left with reconstrution), Ovarian Cysts, Complication (miscarriage (1) and breech (1)) No history of: Endometriosis, Ectopic , Sexually Transmitted Disorders, Reproductive Cancer, Reproductive Problems Other: History of: Cancer No history of: Anesthesia Reactions, Anaphylaxis, Eczema, HIV, Malignant Hyperthermia, MRSA, Vancomycin-Resistant Enterococci, Skin Problems, Miscellaneous Medical Problems - Surgical History Cardiac Surgeries: Patient Denies: Femoral-Popliteal Bypass Graft, Cardiac Catheterization, Cardiac Surgery, Carotid Endarterectomy, Internal Defibrillator, Vascular Access Devices Thoracic Surgeries: Patient denies;: Kidney (Renal Surgery), Lithotripsy, Nephrectomy, Organ Transplant, Lobectomy Neurologic Surgeries: Patient denies: Brain Aneurysm, Cerebral Hemorrhage, Neurologic Surgery HEENT Surgeries: Surgical HX of: Eye Surgery (bilateral cataracts.), Tonsilectomy & Adenoidectomy Patient denies: Carotid Endarterectomy, Thyroid Surgery Abdominal Surgeries: Surgical HX of: Abdominal Surgery, Appendectomy, Cholecystectomy, Colonoscopy, EGD Patient denies: Gastric Bypass Surgery, Hernia Repair, Splenectomy Reproductive Surgeries: Surgical HX of;: Breast Surgery, Section, Cystoscopy, Genitourinary Surgery, Gynecologic Surgery, Hysterectomy Patient denies;: Dilation and Curettage, Tubal Ligation Orthopedic Surgeries: Surgical HX of;: Implanted Devices (bilateral breast implants), Total Hip Replacement (left hip) Patient denies;: Orthopedic Surgery, Spinal Surgery, Total Knee Replacement - Family History Family History: Reports;: Family Heart Disease, Family Hypertension Denies;: Family Anesthesia Reaction, Family Cancer, Family Diabetes, Family Psychiatric Problems, Family Stroke - Social History Smoking Status: Never smoker Frequency of Alcohol Use: None Type of Drug Use: None Exam - Constitutional Vitals: Period Temp Pulse Resp BP Sys/Schneider Pulse Ox Last 24 Hr 97.6 F-98.1 F 85-107 16-20 136-161/72-91 93-95 Exam: Examination of the left knee shows a very slight effusion. Range of motion is about 10-90. She has crepitus to range of motion. She is ligamentously stable. She has valgus angulation that does correct nearly to neutral with varus stress. Results - Labs CBC & BMP: 01/19/17 15:59 01/19/17 15:59 - Diagnostic Findings Procedure: X-ray: image reviewed by me (Radiographs of the left knee show end- stage degenerative changes with near complete loss of joint space tricompartmentally and flattening of the lateral femoral condyle) Assessment and Plan (1) Osteoarthritis of knee Status: Acute Assessment and plan: I discussed the findings with she and her family today. I believe her increased pain is due to arthritic changes. I do not believe she is a good candidate for knee arthroplasty at this time. I recommended nonoperative management and offered corticosteroid injection which she has accepted. We will plan to perform this in the morning. Current Visit: Yes Qualifiers: Osteoarthritis type: primary Laterality: left Qualified Code(s): M17.12 - Unilateral primary osteoarthritis, left knee
[2017-01-23] MEDS ORDERED: BETAMETH SODIUM PHOS/ACETATE 30 MG/5 ML VIAL INTRAARTIC ONE (18:07)
[2017-01-23] MEDS ORDERED: LIDOCAINE 1% 20 ML VIAL MISC INJ ONE (18:07)
[2017-01-23] MEDS: ENOXAPARIN 40 MG/0.4 ML SYRINGE SUBCUT SCH (22:35)
[2017-01-23] MEDS: DONEPEZIL 5 MG TABLET PO SCH (22:35)
[2017-01-24 06:39] LABS: Basophils % 0.8 % (0.0-0.8); Eosinophils # 0.1 10*3/uL (0.0-0.87); Eosinophils % 2.7 % (0.00-10.9); Hematocrit 34.4 VOL% (35.7-47.0); Hemoglobin 10.9 GM/DL (12.0-16.0); Immature Granulocytes % 0.2 %; Immature Granulocytes Absolute 0.01 #; Lymphocytes # 1.3 10*3/uL (1.4-4.0); Lymphocytes % 24.6 % (21.3-54.2); Mean Corpuscular HGB Conc 31.7 GM/DL (32-36); Mean Corpuscular Hemoglobin 28 PG (27-34); Mean Corpuscular Volume 87.3 FL (87-102); Mean Platelet Volume 9.3 FL (9.6-12.0); Monocytes # 0.4 10*3/uL (0.11-0.8); Monocytes % 7.9 % (1.7-12.7); Neutrophils # 3.3 10*3/uL (1.4-7.4); Neutrophils % 63.8 % (38.7-73.9); Platelet Count 419 T/CUMM (130-400); Red Blood Count 3.94 MC/CUMM (3.8-5.5); Red Cell Distribution Width 17.9 % (9.3-17.3); White Blood Count 5.2 T/CUMM (4-12)
--- NOTE | 2017-01-24 07:01 | Discharge Summary ---
Hospital Course - Hospital Course Hospital Course: Patient 81-year-old white female presented the office on day of admission with history of recurring falls and increasing lower extremity weakness. Patient was living in assisted living but was requiring more assistance than the staff there was willing or could provide. Patient was fearful of falling again and she has done this several times. She was having left knee pain and she had received a steroid injection in the left knee with minimal improvement and she had also been fitted for a left knee brace. None of these interventions seem to provide her much relief. Patient was admitted to the hospital and seen by neurology. She had MRIs of her brain, cervical and lumbar spine which showed no acute abnormalities. She was started on physical therapy here which seems to help her somewhat. She was seen in consultation by Dr. Hasmukh Hurtado and she will receive a steroid injection in the knee today prior to transfer to swing bed. Patient was also found to have urinary tract infection secondary to E. coli. Diagnosis - Discharge Diagnosis (1) Recurrent falls while walking Status: Acute (2) Lower extremity weakness Status: Acute (3) UTI (urinary tract infection) Status: Acute Discharge Plan - Discharge Data Disposition: Disch/Xfer to Snf Condition at Discharge: Stable Discharge Diet: advance to your usual diet Activity: as per physical therapy Hygiene: no restrictions Weight Bearing at Discharge: full weight bearing Contact your physician if you experience:: fever over 101 - Discharge Medications New Mirabegron [Myrbetriq] 25 mg PO DAILY DULoxetine [Cymbalta] 60 mg PO DAILY capsule Docusate Sodium Cap [Colace Cap] 100 mg PO BID capsule Donepezil [Aricept] 5 mg PO BEDTIME tablet cephALEXin [Cephalexin] 500 mg PO QID #40 capsule Continue Levothyroxine Tab [Synthroid Tab] 25 mcg PO DAILY Estradiol Tab [Estrace Tab] 1 mg PO DAILY Polyethylene Glycol Powder [Miralax] 17 gm PO DAILY Pantoprazole Tab [Protonix Tab] 40 mg PO BID clonazePAM [Clonazepam] 0.5 mg PO BID Aspirin [Ecotrin] 81 mg PO DAILY Multivitamin (Ocuvite) [Ocuvite] 1 tablet PO DAILY HYDROcodone/ACETAMIN 10-325 [Ellabell 10-325] 1 tablet PO TID Acetaminophen Tab [Tylenol Tab] 650 mg PO Q6H PRN #0 tablet PRN Reason: Fever > 100.4 Or Headache Losartan/Hctz 50-12.5 [Hyzaar 50-12.5] 1 tablet PO DAILY Gabapentin 300 mg PO BID - Follow Up or Referral - Forms/Instructions Exam - Constitutional Vitals: Period Temp Pulse Resp BP Sys/Schneider Pulse Ox Last 24 Hr 97.1 F-97.8 F 87-113 18-20 140-160/77-91 94-95 Exam: Objectively well-developed white female no acute distress. She is able to give good history. She is ready to go to swing bed today after her steroid injection in the left knee. Cardiovascular: Heart rates regular without murmurs or gallops. Respiratory: Lungs clear to auscultation bilaterally. Abdomen: Abdomen soft and nontender to palpation. Discharge Results Procedures and tests throughout hospitalization: Pending Orders 01/19/17 16:00 Blood Culture Stat 01/24/17 06:26 Basic Metabolic Panel IN AM Labs on day of discharge: Labs from last 24 hours 01/24/17 06:26 WBC 5.2 RBC 3.94 Hgb 10.9 L Hct 34.4 L MCV 87.3 MCH 28 MCHC 31.7 L RDW 17.9 H Plt Count 419 H MPV 9.3 L Neut % (Auto) 63.8 Lymph % (Auto) 24.6 Baker % (Auto) 7.9 Eos % (Auto) 2.7 Baso % (Auto) 0.8 Neut # (Auto) 3.3 Lymph # (Auto) 1.3 L Baker # (Auto) 0.4 Eos # (Auto) 0.1 Baso # (Auto) 0.0 Immature Gran % 0.2 Nucleated RBC % 0.0 Immature Gran # 0.01 Nucleated RBCs # 0.00 Preliminary micro results at discharge 01/19/17 16:00 Blood Culture - Preliminary Blood No growth at 3 days 01/19/17 16:00 Blood Culture - Preliminary Blood No growth at 3 days CBC is stable. Her blood cultures are all negative. She did have E. coli in her urine. DS: Provider Date of admission: 01/19/17 14:25 Primary care physician: David Naylor MD Attending physician on admission: David Naylor MD Consults: 01/19/17 14:25 Consult to Case Mgmt/Social Srvs [CONS] Routine Reason for Case Mgmt/Social Srvs: Discharge Planning 01/19/17 14:28 Consult to Physician [CONS] Routine Comment: Consulting Provider: Heriberto Herbert 01/19/17 14:31 Consult to Case Mgmt/Social Srvs [CONS] Routine Reason for Case Mgmt/Social Srvs: Swingbed/SNF/Snf Consult to Occupational Therapy [CONS] Routine Reason for Occupational Therapy: Evaluate and Treat Consult to Physical Therapy [CONS] Routine Reason for Physical Therapy: Evaluate and Treat 01/19/17 17:29 Consult to Pharmacy [CONS] Routine Reason for Pharmacy Consult: Adjust Meds Renal Funct 01/23/17 07:24 Consult to Case Mgmt/Social Srvs [CONS] Routine Reason for Case Mgmt/Social Srvs: Swingbed/SNF/Snf Consult Comment: Patient requests transfer to [facility] 01/23/17 07:30 Consult to Physician [CONS] Routine Comment: Consulting Provider: Ian Keyes Jr. Person Notified: ary Discharging clinician: David Naylor MD Expected date of discharge: 01/24/17
[2017-01-24 07:11] LABS: Calcium 8.8 MG/DL (8.5-10.1); Osmolality,Calculated 286.8 MOS/KG (273-304); Potassium 3.9 MMOL/L (3.5-5.1)
--- NOTE | 2017-01-24 08:13 | Orthopedic Progress Note ---
Assessment and Plan (1) Osteoarthritis of knee Status: Acute Assessment and plan: Knee injected with 2cc celestone and 3cc lidocaine. no complications noted. Ok for d/c f/u prn Current Visit: Yes Qualifiers: Osteoarthritis type: primary Laterality: left Qualified Code(s): M17.12 - Unilateral primary osteoarthritis, left knee Orthopedics - Subjective Interval history: no change from yesterday pm Exam - Constitutional Vitals: Period Temp Pulse Resp BP Sys/Schneider Pulse Ox Last 24 Hr 97.1 F-97.8 F 88-113 18-20 143-160/68-91 93-95 Results - Labs CBC & BMP: 01/24/17 06:26 01/24/17 06:26
[2017-01-24] MEDS: cefTRIAXone 1,000 MG in SODIUM CHLORIDE 0.9% 100 ML IV SCH (10:03)
[2017-01-24] MEDS: MULTIVITAMIN (OCUVITE) TABLET PO SCH (10:12)
[2017-01-24] MEDS: ASPIRIN EC 81 MG TABLET PO SCH (10:12)
[2017-01-24] MEDS: hydroCHLOROthiazide 12.5 MG CAPSULE PO SCH (10:14)
[2017-01-24] MEDS: PANTOPRAZOLE 40 MG TABLET PO SCH (10:14)
[2017-01-24] MEDS: clonazePAM 0.5 MG TABLET PO SCH (10:14)
[2017-01-24] MEDS: DULoxetine 30 MG CAPSULE PO SCH (10:14)
[2017-01-24] MEDS: ESTRADIOL 1 MG TABLET PO SCH (10:14)
[2017-01-24] MEDS: Mirabegron [Myrbetriq] 25 MG PO SCH (10:15)
[2017-01-24] MEDS: LEVOTHYROXINE 25 MCG TABLET PO SCH (10:15)
[2017-01-24] MEDS: POLYETHYLENE GLYCOL POWDER 17 GM PACK PO SCH (10:15)
[2017-01-24] MEDS: GABAPENTIN 300 MG CAPSULE PO SCH (10:15)
[2017-01-24] MEDS: DOCUSATE SODIUM 100 MG CAPSULE PO SCH (10:15)
[2017-01-24 13:11] VITALS: BP 154/87
== END 2017-01-24 11:00 | DRG 554 ==
LOC: N.2E 14:25
PROVIDERS: ADMIT Family Medicine; ATTEND Family Medicine

== ENCOUNTER 2017-12-11 11:28 | Inpatient (IN) ==
[2017-12-11] MEDS ORDERED: ONDANSETRON 4 MG/2 ML VIAL IV PRN (11:41)
[2017-12-11] MEDS ORDERED: ACETAMINOPHEN 325 MG TABLET PO PRN (11:41)
[2017-12-11] MEDS ORDERED: LABETALOL 20 MG/4 ML SYRINGE IV PRN (11:41)
[2017-12-11] MEDS: SODIUM CHLORIDE 0.45% 1,000 ML IV SCH (13:12)
[2017-12-11 15:23] LABS: Basophils # 0.1 10*3/uL (0.0-0.2); Basophils % 1.1 % (0.0-0.8); Eosinophils # 0.1 10*3/uL (0.0-0.87); Eosinophils % 1.7 % (0.00-10.9); Hematocrit 38.9 VOL% (35.7-47.0); Hemoglobin 12.5 GM/DL (12.0-16.0); Immature Granulocytes % 0.5 %; Immature Granulocytes Absolute 0.03 #; Lymphocytes # 1.1 10*3/uL (1.4-4.0); Lymphocytes % 17.1 % (21.3-54.2); Mean Corpuscular HGB Conc 32.1 GM/DL (32-36); Mean Corpuscular Hemoglobin 31 PG (27-34); Mean Corpuscular Volume 97.5 FL (87-102); Monocytes # 0.5 10*3/uL (0.11-0.8); Monocytes % 7.7 % (1.7-12.7); Neutrophils # 4.6 10*3/uL (1.4-7.4); Neutrophils % 71.9 % (38.7-73.9); Platelet Count 456 T/CUMM (130-400); Red Blood Count 3.99 MC/CUMM (3.8-5.5); Red Cell Distribution Width 13.1 % (9.3-17.3); White Blood Count 6.4 T/CUMM (4-12)
[2017-12-11 15:44] LABS: Alanine Aminotransferase 13 U/L (13-56); Albumin 3.6 G/DL (3.4-5.0); Alkaline Phosphatase 86 U/L (45-117); Aspartate Amino Transferase 20 U/L (0-37); Bilirubin,Total < 0.39 MG/DL (0.2-1.0); Blood Urea Nitrogen 22 MG/DL (7-18); Calcium 8.8 MG/DL (8.5-10.1); Glucose 96 MG/DL (74-106); Magnesium 2.3 MG/DL (1.8-2.4); Osmolality,Calculated 285.1 MOS/KG (273-304); Potassium 3.9 MMOL/L (3.5-5.1); Sodium 142 MMOL/L (136-145); Total Protein 6.8 G/DL (6.4-8.3)
[2017-12-11] MEDS ORDERED: ENOXAPARIN 30 MG/0.3 ML SYRINGE SUBCUT SCH (21:00)
[2017-12-11] MEDS: GABAPENTIN 300 MG CAPSULE PO SCH (21:25)
[2017-12-11] MEDS: DOCUSATE SODIUM 100 MG CAPSULE PO SCH (21:25)
[2017-12-11] MEDS: clonazePAM 0.5 MG TABLET PO SCH (21:25)
[2017-12-12 06:04] LABS: Risk Ratio 2.75; VLDL CHOLESTEROL 26.2 MG/DL
[2017-12-12 07:53] LABS: Apearance,Urine CLEAR (Clear); Bacteria,Urine Many /HPF (Few); Bilirubin,Urine Negative (Negative); Blood, Urine Negative (Negative); Glucose,Urine (UA) Negative (Negative); Ketones,Urine Negative (Negative); Mucus,Urine Occasional /LPF (Occasional); Nitrite,Urine Positive (Negative); Protein,Urine Negative; Squamous Epithelial Cell,Urine Occasional /HPF (0-10); Urine Color Yellow (Yellow); Urine Specific Gravity 1.015 (1.001-1.035); Urine Urobilinogen < 2.0 EU/DL (0.2-1.0); WBC,Urine 2 /HPF (0-6)
[2017-12-12] MEDS: ESTRADIOL 1 MG TABLET PO SCH (08:31)
[2017-12-12] MEDS: GABAPENTIN 300 MG CAPSULE PO SCH (08:31)
[2017-12-12] MEDS: DULoxetine 30 MG CAPSULE PO SCH (08:31)
[2017-12-12] MEDS: clonazePAM 0.5 MG TABLET PO SCH ×2 (08:31→21:19)
[2017-12-12] MEDS: LOSARTAN/HCTZ 50-12.5 MG TABLET PO SCH (08:31)
[2017-12-12] MEDS: ASPIRIN EC 81 MG TABLET PO SCH (08:31)
[2017-12-12] MEDS: DOCUSATE SODIUM 100 MG CAPSULE PO SCH ×2 (08:31→21:18)
[2017-12-12] MEDS: POLYETHYLENE GLYCOL POWDER 17 GM PACK PO SCH (08:31)
[2017-12-12] MEDS: MULTIVITAMIN (OCUVITE) TABLET PO SCH (08:31)
[2017-12-12] MEDS: LEVOTHYROXINE 25 MCG TABLET PO SCH (08:31)
[2017-12-12] MEDS: PANTOPRAZOLE 40 MG TABLET PO SCH (08:31)
[2017-12-12] MEDS: SODIUM CHLORIDE 0.45% 1,000 ML IV SCH (11:33)
[2017-12-12] MEDS: CARBIDOPA/LEVODOPA 25-100 MG TABLET PO SCH (16:46)
[2017-12-12] MEDS ORDERED: TUBERCULIN SKIN TEST 0.1 ML SYRINGE INTRADERM ONE (21:00)
[2017-12-12] MEDS: ENOXAPARIN 40 MG/0.4 ML SYRINGE SUBCUT SCH (21:19)
[2017-12-13] MEDS: SODIUM CHLORIDE 0.45% 1,000 ML IV SCH (07:53)
[2017-12-13] MEDS: CARBIDOPA/LEVODOPA 25-100 MG TABLET PO SCH ×3 (08:32→17:02)
[2017-12-13] MEDS: DOCUSATE SODIUM 100 MG CAPSULE PO SCH ×2 (08:33→20:59)
[2017-12-13] MEDS: ASPIRIN EC 81 MG TABLET PO SCH (08:33)
[2017-12-13] MEDS: DULoxetine 30 MG CAPSULE PO SCH (08:33)
[2017-12-13] MEDS: PANTOPRAZOLE 40 MG TABLET PO SCH (08:34)
[2017-12-13] MEDS: POLYETHYLENE GLYCOL POWDER 17 GM PACK PO SCH (08:34)
[2017-12-13] MEDS: clonazePAM 0.5 MG TABLET PO SCH ×2 (08:34→20:59)
[2017-12-13] MEDS: ESTRADIOL 1 MG TABLET PO SCH (08:34)
[2017-12-13] MEDS: LOSARTAN/HCTZ 50-12.5 MG TABLET PO SCH (08:35)
[2017-12-13] MEDS: LEVOTHYROXINE 25 MCG TABLET PO SCH (08:35)
[2017-12-13] MEDS: MULTIVITAMIN (OCUVITE) TABLET PO SCH (08:35)
[2017-12-13] MEDS ORDERED: AMOXICILLIN 875 MG TABLET PO SCH (21:00)
[2017-12-13] MEDS: ENOXAPARIN 40 MG/0.4 ML SYRINGE SUBCUT SCH (21:00)
[2017-12-14] MEDS: SODIUM CHLORIDE 0.45% 1,000 ML IV SCH (03:32)
[2017-12-14 06:19] LABS: Basophils # 0.1 10*3/uL (0.0-0.2); Basophils % 0.9 % (0.0-0.8); Eosinophils # 0.1 10*3/uL (0.0-0.87); Eosinophils % 0.8 % (0.00-10.9); Hematocrit 39.2 VOL% (35.7-47.0); Hemoglobin 13.2 GM/DL (12.0-16.0); Immature Granulocytes % 0.2 %; Immature Granulocytes Absolute 0.01 #; Lymphocytes # 1.3 10*3/uL (1.4-4.0); Lymphocytes % 20.5 % (21.3-54.2); Mean Corpuscular HGB Conc 33.7 GM/DL (32-36); Mean Corpuscular Hemoglobin 31 PG (27-34); Mean Corpuscular Volume 93.1 FL (87-102); Mean Platelet Volume 9.7 FL (9.6-12.0); Monocytes # 0.6 10*3/uL (0.11-0.8); Monocytes % 9.1 % (1.7-12.7); Neutrophils # 4.4 10*3/uL (1.4-7.4); Neutrophils % 68.5 % (38.7-73.9); Platelet Count 442 T/CUMM (130-400); Red Blood Count 4.21 MC/CUMM (3.8-5.5); Red Cell Distribution Width 12.7 % (9.3-17.3); White Blood Count 6.4 T/CUMM (4-12)
[2017-12-14 06:39] LABS: Calcium 9.4 MG/DL (8.5-10.1); Osmolality,Calculated 272.7 MOS/KG (273-304); Potassium 3.6 MMOL/L (3.5-5.1)
[2017-12-14] MEDS: ESTRADIOL 1 MG TABLET PO SCH (08:18)
[2017-12-14] MEDS: MULTIVITAMIN (OCUVITE) TABLET PO SCH (08:18)
[2017-12-14] MEDS: CARBIDOPA/LEVODOPA 25-100 MG TABLET PO SCH (08:18)
[2017-12-14] MEDS: LOSARTAN/HCTZ 50-12.5 MG TABLET PO SCH (08:18)
[2017-12-14] MEDS: POLYETHYLENE GLYCOL POWDER 17 GM PACK PO SCH (08:18)
[2017-12-14] MEDS: clonazePAM 0.5 MG TABLET PO SCH (08:19)
[2017-12-14] MEDS: ASPIRIN EC 81 MG TABLET PO SCH (08:19)
[2017-12-14] MEDS: DOCUSATE SODIUM 100 MG CAPSULE PO SCH (08:19)
[2017-12-14] MEDS: DULoxetine 30 MG CAPSULE PO SCH (08:19)
[2017-12-14] MEDS: LEVOTHYROXINE 25 MCG TABLET PO SCH (08:19)
[2017-12-14] MEDS: PANTOPRAZOLE 40 MG TABLET PO SCH (08:20)
[2017-12-14] MEDS ORDERED: NITROFURANTOIN MACRO/MONO 100 MG CAPSULE PO SCH (09:00)
[2017-12-14 12:02] VITALS: BP 162/98
== END 2017-12-14 13:18 | DRG 948 ==
LOC: N.2E 12:11
PROVIDERS: ADMIT Family Medicine; ATTEND Family Medicine